=== PATIENT | male | born 1930 | race Caucasian/White ===

== ENCOUNTER → 2017-03-01 | Outpatient (CLI) | payer OTHER ==
[~2017-03-01] MED LIST: REGADENOSON 0.4 MG/5 ML DISP.SYRIN. IV ONE
--- NOTE | 2017-03-01 13:26 | RAD ---
APPROVED REPORT Test Type: Pharmacological Stress Nurse/Tech: RT Janes (R) (N) Test Indications: chest pain, dizziness Cardiac History: CHF, CABG, pacemaker, mitral valve replacement Medications: see ehr Medical History: see ehr Resting ECG: v paced Resting Heart Rate: 76 bpm Resting Blood Pressure: 135/70mmHg Pretest Chest Pain: None Nurse/Tech Notes Consent: The procedure was explained to the patient in lay terms. Informed consent was witnessed. Jeb eout was entered into [employer]. History and Stress Test performed by RT Janes (R) (N) Pharm. Details Pharmacologic stress testing was performed using 0.4mg per 5ml of regadenoson given intravenously ove r 7-10 seconds. POST EXERCISE Reason for Termination: Infusion complete Max HR: 87 bpm Max Blood Pressure: 92/47mmHg Chest Pain: No. INTERPRETATION Stress EKG Conclusion: Non-diagnostic EKG due to V-pacing. Imaging Protocol IMAGE PROTOCOL: Rest Tc-99m/stress Tc-99m 1 day Rest: Stress: Viability: Radiopharm.Tc99m [id number] Sestamibi Eguc10fHl 32mCi Duration 20min. 15min. Img Date 03/01/2017 03/01/2017 Inj-Img [id number]. 60min. Rest Admin Site:IV - Left ForearmAdministrator: RT Janes (R)(N) Stress Admin Site: IV - Left ForearmAdministrator: RT Janes (R)(N) STRESS DATA End Diast. Vol.93.0mlAv. Heart Rate79.0bpm LVEDV index BSA2.0mlCardiac Output0.1L/min End Syst. Vol.26.0mlCO Index BSA5.3L/min LVESV index BSA0.0mlMyocardial Eksi267.0g Eject. Kknnovsh80.0% Stress Rates Pk. Fill Rate2.45EDV/secLVtime Pk. Fill 194.63msec Pk. Empty Rate3.25ESV/secLVtime Pk. Cltxy327.39msec 11/23 Pk. Fill1.24EDV/sec Stress Scores Regional WT0.00Summed WT4.00 Regional WM0.00Summed WM6.00 The rest and stress images show normal perfusion, normal contraction and thickening. LV Perf. Quant 17 Seg. SSS3.00 17 Seg. SRS1.00 17 Seg. SDS3.00 Stress Defect Extent (% LAD)0.00Rest Defect Extent (% LAD)2.50Rev. Defect Extent (% LAD)0.00 Stress Defect Extent (% LCX) 5.00Rest Defect Extent (% LCX)0.00Rev. Defect Extent (% LCX)5.00 Stress Defect Extent (% RCA)0.00Rest Defect Extent (% RCA)0.00Rev. Defect Extent (% RCA)0.00 Stress Defect Extent (% EMILY)1.30Rest Defect Extent (% EMILY)2.40Rev. Defect Extent (% EMILY)1.30 Other Information Quality:Average Risk Assessment: Low Risk Conclusion 1. Non-diagnostic EKG due to v-pacing. 2. Normal perfusion at stress/rest. Subtle fixed defect in the apex likely related to apical thinning (normal variant). 3. Normal EF at > 70% 4. Low risk study
== END | disposition home or self-care (01) ==
LOC: NM 09:02
PROVIDERS: ATTEND Student in an Organized Health Care Education/Training Program
DX: I49.5 Sick sinus syndrome (principal); R07.9 Chest pain, unspecified
CPT/HCPCS: 78452; 93017; 96374; 96375; 96376; A9500; J2785